=== PATIENT | male | born 1990 | race African-American/Black ===

== ENCOUNTER 2018-11-04 07:38 | Emergency (ER) | payer SELFPAY ==
--- NOTE | 2018-11-04 08:01 | EDPHYS ---
Physician Documentation [facility] Name: Keenan Hinton Age: 28 yrs Sex: Male : 1990 Arrival Date: 11/04/2018 Time: 07:41 Bed 19 Private MD: ED Physician Santhosh Acevedo HPI: 11/04 07:51 This 28 yrs old Black Male presents to ER via Unassigned with complaints of Toothache, ma2 Facial Swelling. 07:51 The patient presents with lost tooth/teeth. ma2 07:56 Onset: The symptoms/episode began/occurred gradually, 1 day(s) ago. Duration: The ma2 symptoms are continuous. Associated signs and symptoms: Pertinent positives: swelling, Pertinent negatives: fever, nausea, pain, redness in area. Severity of symptoms: At their worst the symptoms were moderate, in the emergency department the symptoms are unchanged. The patient has experienced a previous episode. Historical: - Allergies: 07:52 No Known Allergies; iw - Home Meds: 07:52 None [Active]; iw - PMHx: 07:52 None; iw - PSHx: 07:52 None; iw - Immunization history:: Adult Immunizations. - Social history:: Smoking status: Patient/guardian denies using alcohol, street drugs, The patient lives with family. - Ebola Screening: : Patient negative for fever greater than or equal to 101.5 degrees Fahrenheit, and additional compatible Ebola Virus Disease symptoms Patient denies exposure to infectious person Patient denies travel to an Ebola-affected area in the 21 days before illness onset No symptoms or risks identified at this time. - Family history:: not pertinent. ROS: 07:56 Constitutional: Negative for fever, chills, and weight loss, Cardiovascular: Negative ma2 for chest pain, palpitations, and edema, Respiratory: Negative for shortness of breath, cough, wheezing, and pleuritic chest pain, Abdomen/GI: Negative for abdominal pain, nausea, diarrhea, and constipation, MS/Extremity: Negative for injury and deformity, Skin: Negative for injury, rash, and discoloration, Neuro: Negative for headache, weakness, numbness, tingling, and seizure, Psych: Negative for depression, anxiety, suicide ideation, homicidal ideation, and hallucinations, Allergy/Immunology: Negative for hives, rash, and allergies. 07:56 ENT: Positive for dental pain, Negative for ear pain, hearing loss, pulling at ears, rhinorrhea. Exam: 07:56 Constitutional: This is a well developed, well nourished patient who is awake, alert, ma2 and in no acute distress. Head/Face: Normocephalic, atraumatic. Neck: Trachea midline, no thyromegaly or masses palpated, and no cervical lymphadenopathy. Supple, full range of motion without nuchal rigidity, or vertebral point tenderness. No Meningismus. Chest/axilla: Normal chest wall appearance and motion. Nontender with no deformity. No lesions are appreciated. Cardiovascular: Regular rate and rhythm with a normal S1 and S2. No gallops, murmurs, or rubs. Normal PMI, no JVD. No pulse deficits. Skin: Warm, dry with normal turgor. Normal color with no rashes, no lesions, and no evidence of cellulitis. MS/ Extremity: Pulses equal, no cyanosis. Neurovascular intact. Full, normal range of motion. Neuro: Awake and alert, GCS 15, oriented to person, place, time, and situation. Cranial nerves II-XII grossly intact. Motor strength 5/5 in all extremities. Sensory grossly intact. Cerebellar exam normal. Normal gait. 07:56 ENT: TM's: Nose: is normal, Mouth: Gums: normal with healthy appearance, abscess, is not appreciated, drooling, is not appreciated, Dental exam: abscess, is not appreciated, cellulitis, is not appreciated, dental caries, that is moderate, left lower second molar , the patient wears dentures, fractured teeth are noted, gum swelling, that is mild, pain, that is moderate. Vital Signs: 07:52 BP 141 / 89; Pulse 78; Resp 16 S; Temp 98.4(TE); Pulse Ox 98% on R/A; Weight 85.28 kg; iw Height 5 ft. 11 in. (180.34 cm); Pain 10/10; 07:52 BP 141 / 89; Pulse 86; Resp 17; Pulse Ox 97% on R/A; tw2 07:52 Body Mass Index 26.22 (85.28 kg, 180.34 cm) iw MDM: 07:46 Patient medically screened. ma2 07:56 Differential diagnosis: dental caries, pericoronitis. Data reviewed: vital signs, ma2 nurses notes. Counseling: I had a detailed discussion with the patient and/or guardian regarding: the historical points, exam findings, and any diagnostic results supporting the discharge/admit diagnosis, the presence of at least one elevated blood pressure reading (>120/80) during this emergency department visit, the need for outpatient follow up, with dentist . Administered Medications: No medications were administered Disposition: 11/04/18 08:00 Discharged to Home. Impression: Dental caries. - Condition is Stable. - Discharge Instructions: Dental Abscess, [id number]. - Prescriptions for Augmentin 875- 125 mg Oral Tablet - take 1 tablet by ORAL route every 12 hours for 10 days; 20 tablet. Tylenol- Codeine #3 300-30 mg Oral Tablet - take 2 tablet by ORAL route every 6 hours As needed; 6 tablet. - Work release form, Medication Reconciliation Form, Thank You Letter, Antibiotic Education, Prescription Opioid Use form. - Follow up: Private Physician; When: Tomorrow; Reason: Continuance of care. Signatures: Denise Hobbs RN RN iw Kamilla Falcon RN RN tw2 Santhosh Acevedo MD MD ma2 Corrections: (The following items were deleted from the chart) 08:05 08:00 11/04/2018 08:00 Discharged to Home. Impression: Dental caries. Condition is tw2 Stable. Forms are Work release form, Medication Reconciliation Form, Thank You Letter, Antibiotic Education, Prescription Opioid Use. Follow up: Private Physician; When: Tomorrow; Reason: Continuance of care. ma2
--- NOTE | 2018-11-04 08:01 | ER ---
Nurse's Notes [facility] Name: Keenan Hinton Age: 28 yrs Sex: Male : 1990 Arrival Date: 11/04/2018 Time: 07:41 Bed 19 Private MD: Diagnosis: Dental caries Presentation: 11/04 07:51 Presenting complaint: Patient states: toothache X 2 days, swelling to left lower jaw iw since last night. Transition of care: patient was not received from another setting of care. Onset of symptoms was November 03, 2018. Risk Assessment: Do you want to hurt yourself or someone else? Patient reports no desire to harm self or others. Initial Sepsis Screen: Does the patient meet any 2 criteria? No. Patient's initial sepsis screen is negative. Does the patient have a suspected source of infection? No. Patient's initial sepsis screen is negative. Care prior to arrival: None. 07:51 Method Of Arrival: Ambulatory iw 07:51 Acuity: NICOLE 4 iw Triage Assessment: 08:05 General: Behavior is calm, cooperative. tw2 Historical: - Allergies: 07:52 No Known Allergies; iw - Home Meds: 07:52 None [Active]; iw - PMHx: 07:52 None; iw - PSHx: 07:52 None; iw - Immunization history:: Adult Immunizations. - Social history:: Smoking status: Patient/guardian denies using alcohol, street drugs, The patient lives with family. - Ebola Screening: : Patient negative for fever greater than or equal to 101.5 degrees Fahrenheit, and additional compatible Ebola Virus Disease symptoms Patient denies exposure to infectious person Patient denies travel to an Ebola-affected area in the 21 days before illness onset No symptoms or risks identified at this time. - Family history:: not pertinent. Screenin:53 Abuse screen: Denies threats or abuse. Denies injuries from another. Nutritional iw screening: No deficits noted. Tuberculosis screening: No symptoms or risk factors identified. Fall Risk None identified. Assessment: 07:53 General: Appears in no apparent distress. Pain: Complains of pain in mouth and left jaw.iw 07:59 Neuro: Level of Consciousness is awake, alert, obeys commands. Cardiovascular: tw2 Patient's skin is warm and dry. Respiratory: Airway is patent Respiratory effort is even, unlabored, Respiratory pattern is regular, symmetrical. GI: No signs and/or symptoms were reported involving the gastrointestinal system. EENT: Reports pain in left jaw and mouth. Musculoskeletal: Range of motion: intact in all extremities. 08:04 Reassessment: Patient appears in no apparent distress at this time. Patient is alert, tw2 oriented x 3, equal unlabored respirations, skin warm/dry/pink. Vital Signs: 07:52 BP 141 / 89; Pulse 78; Resp 16 S; Temp 98.4(TE); Pulse Ox 98% on R/A; Weight 85.28 kg; iw Height 5 ft. 11 in. (180.34 cm); Pain 10/10; 07:52 BP 141 / 89; Pulse 86; Resp 17; Pulse Ox 97% on R/A; tw2 07:52 Body Mass Index 26.22 (85.28 kg, 180.34 cm) ED Course: 07:41 Patient arrived in ED. rg4 07:44 Bed in low position. Call light in reach. Pulse ox on. NIBP on. tw2 07:46 Santhosh Acevedo MD is Attending Physician. ma2 07:51 Triage completed. iw 07:52 Kamilla Falcon RN is Primary Nurse. tw2 07:52 Arm band placed on. iw 08:04 No provider procedures requiring assistance completed. Patient did not have IV access tw2 during this emergency room visit. Administered Medications: No medications were administered Outcome: 08:00 Discharge ordered by . ma2 08:04 Discharged to home ambulatory. tw2 08:04 Condition: stable 08:04 Discharge instructions given to patient, Instructed on discharge instructions, follow up and referral plans. no drinking with medication, no driving heavy equipment, medication usage, Demonstrated understanding of instructions, follow-up care, medications, Prescriptions given X 2. 08:05 Patient left the ED. tw2 Signatures: Denise Hobbs RN RN Kamilla Falcon RN RN 2 Yvette Meneses rg4 Santhosh Acevedo MD MD nv2
== END 2018-11-04 08:05 | disposition home or self-care (01) ==
LOC: ER 07:38
DX: K02.9 Dental caries, unspecified (principal)
CPT/HCPCS: 99283

== ENCOUNTER 2020-02-16 02:05 | Emergency (ER) | payer SELFPAY ==
--- NOTE | 2020-02-16 02:58 | EDPHYS ---
Physician Documentation [facility] Name: Keenan Hinton Age: 29 yrs Sex: Male : 1990 Arrival Date: 02/16/2020 Time: 02:07 Bed 4 Private MD: ED Physician Cj Daigle HPI: 02/15 02:35 This 29 yrs old Black Male presents to ER via Ambulatory with complaints of Vomiting, mh7 Shakiness. 02:35 The patient presents to the emergency department with nausea, that is mild, vomiting, mh7 Onset: The symptoms/episode began/occurred just prior to arrival. Possible causes: unknown. The symptoms are aggravated by nothing. The symptoms are alleviated by nothing. Associated signs and symptoms: Pertinent negatives: abdominal pain, anorexia, belching, constipation, diarrhea, dysuria, fever, flatulence, GI bleeding, hematuria. Severity of symptoms: At their worst the symptoms were moderate just prior to arrival, in the emergency department the symptoms have improved moderately. The patient has not experienced similar symptoms in the past. Patient states that he has taken Ibuprofen 800 mg tablets 5 times in the past day, Tylenol, and BC powder due to chronic left lower tooth pain. He also had some alcoholic drinks. He states that after sleeping for about 2 hours this evening he woke feeling shaky and had some vomiting. He denies any other complaints.. Historical: - Allergies: 02:22 No Known Allergies; rv - Home Meds: 02:22 None [Active]; rv - PMHx: 02:22 None; rv - PSHx: 02:22 None; rv - Immunization history:: Adult Immunizations up to date. - Social history:: Smoking status: Patient reports the use of cigarette tobacco products, denies chronic smoking, but will smoke occasionally. ROS: 02:35 Eyes: Negative for injury, pain, redness, and discharge, Neck: Negative for injury, mh7 pain, and swelling, Cardiovascular: Negative for chest pain, palpitations, and edema, Respiratory: Negative for shortness of breath, cough, wheezing, and pleuritic chest pain, Back: Negative for injury and pain, : Negative for injury, bleeding, discharge, and swelling, MS/Extremity: Negative for injury and deformity, Skin: Negative for injury, rash, and discoloration, Neuro: Negative for headache, weakness, numbness, tingling, and seizure, Psych: Negative for depression, anxiety, suicide ideation, homicidal ideation, and hallucinations, Allergy/Immunology: Negative for hives, rash, and allergies, Endocrine: Negative for neck swelling, polydipsia, polyuria, polyphagia, and marked weight changes, Hematologic/Lymphatic: Negative for swollen nodes, abnormal bleeding, and unusual bruising. Exam: 02:35 Constitutional: This is a well developed, well nourished patient who is awake, alert, mh7 and in no acute distress. Head/Face: Normocephalic, atraumatic. Eyes: Pupils equal round and reactive to light, extra-ocular motions intact. Lids and lashes normal. Conjunctiva and sclera are non-icteric and not injected. Cornea within normal limits. Periorbital areas with no swelling, redness, or edema. 02:35 Neck: Trachea midline, no thyromegaly or masses palpated, and no cervical lymphadenopathy. Supple, full range of motion without nuchal rigidity, or vertebral point tenderness. No Meningismus. Chest/axilla: Normal chest wall appearance and motion. Nontender with no deformity. No lesions are appreciated. Cardiovascular: Regular rate and rhythm with a normal S1 and S2. No gallops, murmurs, or rubs. Normal PMI, no JVD. No pulse deficits. Respiratory: Lungs have equal breath sounds bilaterally, clear to auscultation and percussion. No rales, rhonchi or wheezes noted. No increased work of breathing, no retractions or nasal flaring. Abdomen/GI: Soft, non-tender, with normal bowel sounds. No distension or tympany. No guarding or rebound. No evidence of tenderness throughout. Back: No spinal tenderness. No costovertebral tenderness. Full range of motion. Skin: Warm, dry with normal turgor. Normal color with no rashes, no lesions, and no evidence of cellulitis. MS/ Extremity: Pulses equal, no cyanosis. Neurovascular intact. Full, normal range of motion. Neuro: Awake and alert, GCS 15, oriented to person, place, time, and situation. Cranial nerves II-XII grossly intact. Motor strength 5/5 in all extremities. Sensory grossly intact. Cerebellar exam normal. Normal gait. 02:35 ENT: Dental exam: dental caries, that is mild, specifically in the lower left first molar (#19). 02:35 Psych: Behavior/mood is anxious. Vital Signs: 02:19 BP 145 / 79; Pulse 106; Resp 19; Temp 99.4; Pulse Ox 99% ; Weight 93.89 kg; Height 5 rv ft. 11 in. (180.34 cm); Pain 6/10; 02:19 Body Mass Index 28.87 (93.89 kg, 180.34 cm) rv MDM: 02:20 Patient medically screened. [facility] 02:35 Differential diagnosis: gastritis, pancreatitis, substance abuse, salicylate poisoning, 7 alcohol abuse, alcohol withdrawal. Data reviewed: vital signs, nurses notes. 03:32 Refusal of service: The patient/guardian displays adequate decision making capability [facility] and despite a detailed discussion of alternatives, benefits, risks, and consequences refuses: all lab tests. ED course: Informed by nursing staff that patient eloped from the ED.. Administered Medications: 02:43 CANCELLED (Patient Eloped): NS 0.9% 1000 ml IV at 1000 ml once rv Disposition: 07:15 Co-signature as Attending Physician, Cj Daigle MD. [facility] Disposition: 02/16/20 02:57 Patient left the facility after being seen by provider. - Patient left due to unknown. Signatures: Dispatcher [employer] EDMS Kaleb Dhaliwal RN RN jb4 Yamil Wright RN RN rv Cj Daigle MD MD mh7 Corrections: (The following items were deleted from the chart) 02:43 02:34 IV Saline Lock ordered. [facility] rv 02:43 02:34 Labs collected and sent ordered. [facility] rv 02:43 02:34 Urine Dipstick-Ancillary ordered. [facility] rv 02:43 02:34 NS 0.9% 1000 ml IV at 1000 ml once ordered. [facility] rv
--- NOTE | 2020-02-16 02:58 | ER ---
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 COMPLAINING OF TOOTHACHE ALL DAY, rv TOOK IBUPROFEN FOR THE PAIN. AND HE FELT SHAKY THINKING HE TOOK TOO MUCH IBUPROFEN. Coronavirus screen: Proceed with normal triage. Ebola Screen: No symptoms or risks identified at this time. Initial Sepsis Screen: Does the patient meet any 2 criteria? No. Patient's initial sepsis screen is negative. Does the patient have a suspected source of infection? No. Patient's initial sepsis screen is negative. Risk Assessment: Do you want to hurt yourself or someone else? Patient reports no desire to harm self or others. Onset of symptoms was February 15, 2020 at 08:00. 02:19 Method Of Arrival: Ambulatory rv 02:19 Acuity: NICOLE 4 rv Triage Assessment: 02:22 General: Appears uncomfortable, Behavior is calm, cooperative. Pain: Complains of pain rv in TOOTH. Neuro: Level of Consciousness is awake, alert, obeys commands, Oriented to person, place, time, situation. Cardiovascular: Patient's skin is warm and dry. Respiratory: Airway is patent. GI: Reports vomiting, 1X. Derm: Skin is healthy with good turgor. Historical: - Allergies: 02:22 No Known Allergies; rv - Home Meds: 02:22 None [Active]; rv - PMHx: 02:22 None; rv - PSHx: 02:22 None; rv - Immunization history:: Adult Immunizations up to date. - Social history:: Smoking status: Patient reports the use of cigarette tobacco products, denies chronic smoking, but will smoke occasionally. Screenin:23 Abuse screen: Denies threats or abuse. Denies injuries from another. Nutritional rv screening: No deficits noted. Tuberculosis screening: No symptoms or risk factors identified. Fall Risk None identified. Vital Signs: 02:19 BP 145 / 79; Pulse 106; Resp 19; Temp 99.4; Pulse Ox 99% ; Weight 93.89 kg; Height 5 rv ft. 11 in. (180.34 cm); Pain 6/10; 02:19 Body Mass Index 28.87 (93.89 kg, 180.34 cm) rv ED Course: 02:07 Patient arrived in ED. cl3 02:17 Cj Daigle MD is Attending Physician. mh7 02:19 Yamil Wright, RN is Primary Nurse. rv 02:22 Triage completed. rv 02:22 Arm band placed on Patient placed Patient notified of wait time. rv 02:23 Patient has correct armband on for positive identification. Bed in low position. Call rv light in reach. Side rails up X 1. Pulse ox on. NIBP on. Administered Medications: 02:43 CANCELLED (Patient Eloped): NS 0.9% 1000 ml IV at 1000 ml once rv Outcome: 02:43 Eloped from patient exam room, after seeing physician Time discovered patient gone: February at 02:40 02:43 Condition: unchanged 02:57 Patient left the ED. jb4 Signatures: Kaleb Dhaliwal RN RN jb4 Yamil Wright, Marcos Ruiz RN cl3 Cj Daigle MD MD mh7
[2020-02-16 03:04] VITALS: BP 145/79; TEMP 99.4; O2SAT 99
== END 2020-02-16 02:57 | disposition left against medical advice (07) ==
LOC: ER 02:05
DX: R11.2 Nausea with vomiting, unspecified (principal); K02.9 Dental caries, unspecified; F17.210 Nicotine dependence, cigarettes, uncomplicated
CPT/HCPCS: 99282